=== PATIENT | female | born 1985 | race Caucasian/White ===

== ENCOUNTER 2017-10-31 10:46 | Day surgery (SDC) | payer MEDICAID, OTHER ==
--- NOTE | 2017-10-28 15:34 | HP ---
DATE OF SURGERY: 10/31/2017 HISTORY OF PRESENT ILLNESS: The patient is a 32 year-old who a year ago started having some shooting pain, some diarrhea, dizziness and right upper quadrant pain radiating to her central abdomen and some shooting up to her shoulder. She had worsening pain over the past month and more continuous now. It starts 30 minutes after eating. Worse throughout the day. She is fine early in the morning but worse throughout the day. She started some antacids in mid-September that did not help so she stopped this. Pepto-Bismol and José Miguel's helped some. PAST MEDICAL HISTORY: She denied any chronic illnesses. PAST SURGICAL HISTORY: She had tubal in the past. MEDICATIONS: None. ALLERGIES: PENICILLIN. FAMILY HISTORY: Breast cancer and kidney disease. SOCIAL HISTORY: No smoking or alcohol abuse. REVIEW OF SYSTEMS: Twelve systems reviewed per admission assessment. No chest pain or palpitations other systems negative or noncontributory as above and per preadmission questionnaire. PHYSICAL EXAMINATION: GENERAL: No acute distress. HEENT: Sclerae nonicteric. NECK: No JVD. CHEST: Equal excursion, nonlabored breathing. CVS: Regular rate and rhythm. ABDOMEN: Soft. Some mild tenderness right upper quadrant. No peritoneal signs. EXTREMITIES: No significant edema. NEURO: Alert, moving extremities symmetrically. No gross motor deficits noted. She had ultrasound showed multiple question of gallbladder polyps, loose sludge balls or adherent stones. IMPRESSION: Symptomatic biliary colic, question of probable chronic cholecystitis with question of symptomatic sludge versus possible gallbladder polyps or nonadherent stones. Either way given her biliary symptoms and abnormal ultrasound I feel she warrants cholecystectomy. She was shown the risk sheet and pamphlet, explained the procedure in detail but not limited to bleeding or infection, risk of trocar injury or hernia, small risk of bowel, bladder or blood vessel injury, small risk of bile leak, bile duct injury, retained stone or sludge possibly requiring further procedure either open or ERCP, general risk of anesthesia, deep venous thrombosis, pulmonary embolism, pneumonia, perioperative risk of aches, pains, bloating, constipation and/or loose stools possibly even chronic in nature. She understands and agrees to the planned procedure, will proceed with laparoscopic cholecystectomy with possible as an outpatient.
[~2017-10-31 10:46] MED LIST: CLINDAMYCIN-D5W 900 MG/50 ML*** 900 MG/50 ML BAG IV SCH; Lactated Ringers 1,000 ML IV ONE; Lactated Ringers 1,000 ML IV SCH; Levofloxacin 500MG/100ML D5W 500 MG/100 ML BAG IV SCH; Sensorcaine 0.25% 10 ML ONE
[2017-10-31] MEDS ORDERED: SUBLIMAZE 100 MCG/2 ML IV ONE (10:47)
[2017-10-31] MEDS ORDERED: Zofran 4 MG/2 ML VIAL IV ONE (10:47)
[2017-10-31] MEDS ORDERED: Quelicin Fliptop 200 MG/10 ML IJ ONE (10:47)
[2017-10-31] MEDS ORDERED: TORAdol 30 mg Injection IJ ONE (10:47)
[2017-10-31] MEDS ORDERED: Zemuron 100 MG/10 ML IJ ONE (10:47)
[2017-10-31] MEDS ORDERED: Decadron 4 MG INJ IV ONE (10:47)
[2017-10-31] MEDS ORDERED: BREVIBLOC 100 MG/10 ML IV ONE (10:47)
[2017-10-31] MEDS ORDERED: DIPRIVAN 200 MG/20 ML IV ONE (10:47)
[2017-10-31] MEDS ORDERED: BRIDION 200MG/2ML IV ONE (10:47)
[2017-10-31] MEDS ORDERED: Levofloxacin 500MG/100ML D5W 500 MG/100 ML BAG IV ONE (10:54)
[2017-10-31 11:00] LABS: Hematocrit 44.6 % (35-47); Hemoglobin 14.5 gm/dl (12.0-16.0); Mean Cell Volume 93.9 fl (78-100); Mean Corpuscular Hemoglobin 30.5 pg (26-32); Mean Corpuscular Hgb Concent. 32.5 g/dl (32-36); Mean Platelet Volume 9.2 fl (6-9.5); Platelet Count 363 K/mm3 (150-450); Red Blood Count 4.75 M/mm3 (4.1-5.4); Red Cell Distribution Width 13.1 % (11.5-14.0)
[2017-10-31 11:32] LABS: ALBUMIN 4.2 g/dL (3.4-5.0); ALKALINE PHOSPHATASE 66 U/L (46-116); BLOOD UREA NITROGEN 11 mg/dL (9-20); CHLORIDE 104 mEq/L (98-107); Calcium 9.1 mg/dL (8.5-10.1); Carbon Dioxide 24.4 mEq/L (21-32); Creatinine 1 0.77 mg/dl (0.55-1.30); EST GLOMERULAR FILTRATION RATE > 60 ML/MIN; Glucose 97 MG/DL (70-110); HCG, Quantitative (Inhouse) < 1.0 IU/L (0-6); Potassium 4.7 mEq/L (3.5-5.1); SGOT/AST 27 U/L (15-37); SGPT/ALT 33 U/L (12-78); SODIUM 137 mEq/L (136-145)
[2017-10-31] MEDS ORDERED: DEMEROL 50 MG ONE (13:24)
[2017-10-31] MEDS ORDERED: DILAUDID 2 MG INJECTION ONE (13:28)
[2017-10-31] MEDS ORDERED: Transderm Scop 1.5MG Patch TOP ONE (14:00)
[2017-10-31] MEDS ORDERED: Phenergan 25 MG INJ IV ONE (14:28)
[2017-10-31 15:20] VITALS: BP 145/98; PULSE 99; O2SAT 95
--- NOTE | 2017-11-01 09:38 | OP ---
SURGERY DATE/TIME: 10/31/2017 1228 PREOPERATIVE DIAGNOSES: 1) Symptomatic biliary colic. 2) Question gallbladder polyps versus sludge balls or adherent stones with probable early chronic cholecystitis. POSTOPERATIVE DIAGNOSES: 1) Symptomatic biliary colic. 2) Question gallbladder polyps versus sludge balls or adherent stones with probable early chronic cholecystitis. PROCEDURE: Laparoscopic cholecystectomy. SURGEON: Dr. Brian Tellez. FOOD RUNNER: Shahnaz Alfonso, Medical Student III. ANESTHESIA: General. ESTIMATED BLOOD LOSS: Minimal. INDICATIONS: As noted above. Risks and benefits explained in detail but not limited to and consent obtained. DESCRIPTION OF PROCEDURE AND FINDINGS: The patient was taken to the OR. General anesthesia was induced. Abdomen prepped and draped in the usual sterile fashion. After official time out and no disagreement with planned procedure, a transverse incision made at the supraumbilical area. Fascia grasped and pulled upward. Veress needle inserted and tested with saline. Pneumoperitoneum accomplished insufflating opening pressure of 0-15. An 11 mm bladeless port and camera were inserted without difficulty followed by two - 5 mm right upper quadrant ports and a 5 mm epigastric port. There was no evidence of any intra-abdominal injury secondary to trocar insertion. Gallbladder was grasped and retracted over the edge of the liver and laterally away from Calot's triangle. Dissection through mild chronic inflammatory reaction dissecting posterior lateral to anterior fashion. Slowly and carefully cystic duct and infundibular junction and main cystic artery slowly and carefully skeletonized until a critical view was obtained both anteriorly and posteriorly. Once this was accomplished cystic duct and cystic artery were clipped x3 and divided in the usual fashion. The cystic artery had some splayed out branches that required clipping additional oozing side branches directly on the gallbladder wall, this was slowly and carefully accomplished again staying directly on the gallbladder wall. The gallbladder slowly and carefully dissected free from its dense almost concrete attachments to the liver bed staying directly on the gallbladder wall. Just prior to releasing from final attachments to the anterior edge of the liver, the liver bed re-inspected. Clips noted to be in place in cystic duct and cystic artery stumps. There were no signs of any active bleeding or bile leakage. Copious amount of irrigation accomplished lateral to the liver and subhepatic space irrigating until clear. At this point it was felt there was no benefit in drain placement. The clips were noted in place in the cystic duct and cystic artery stumps. Gallbladder released from final attachments to the anterior edge of the liver. It was pulled up and out the umbilical 10/11 port site and passed off. The port replaced. Copious amount of irrigation accomplished lateral to the liver and subhepatic space irrigating until clear. Good hemostasis noted. At this point the fascial defects in the supraumbilical area closed with puncture closure device and #1 Vicryl. Pneumoperitoneum decompressed. The wound was irrigated out. Skin incision closed with 4-0 Vicryl. Steri-Strips and sterile dressing applied. 0.25% Marcaine local injected along the skin incision fascial defect. The patient tolerated the procedure well. There were no immediate complications. Findings discussed with the family out in the waiting area.
== END 2017-10-31 15:30 | disposition home or self-care (01) ==
LOC: SDC 10:46
PROVIDERS: ATTEND Surgery
PROC: 0FT44ZZ Resection of Gallbladder, Percutaneous Endoscopic Approach (ICD-10-PCS; principal; 2017-10-31)
DX: K80.64 Calculus of gallbladder and bile duct with chronic cholecystitis without obstruction (principal)
CPT/HCPCS: 00790; 36415; 80053; 84702; 85027; 93005; J0330; J1100; J1170; J1885; J1956; J2175; J2405; J2550; J2704; J3010; A9270-GY